=== PATIENT | female | born 1975 ===

== ENCOUNTER 2016-07-29 18:02 | Emergency (ER) | payer SELFPAY ==
[2016-07-29] MEDS ORDERED: BOOSTRIX IM ONE (18:40)
--- NOTE | 2016-07-29 18:42 | Emergency Department Report ---
Chief Complaint: Extremity Injury, Lower Stated Complaint: INFECTION Time Seen by Provider: 07/29/16 18:39 - HPI History of Present Illness: PT states she was in briar patch last week. pt states her wounds are infected. PT is not UTD on TD vaccine - ROS Review of Systems: - fever + redness, + swelling + wounds from briar patch - Exam Vital Signs: Vital Signs 07/29/16 18:34 Temperature 97.7 F Pulse Rate 89 Respiratory 16 Rate Blood Pressure 134/87 O2 Sat by Pulse 100 Oximetry Physical Exam: pt looks well, non toxic. multiple abrasions/ scabs to LLE MSE screening note: Focused history and physical exam performed. Due to findings the following was ordered: tdap ED Disposition for MSE Condition: Stable
--- NOTE | 2016-07-29 21:42 | Emergency Department Report ---
- General Chief complaint: Extremity Injury, Lower Stated complaint: INFECTION Time Seen by Provider: 07/29/16 18:39 Source: patient, family Mode of arrival: Ambulatory Limitations: No Limitations - History of Present Illness Initial comments: She reported that she was in a few days ago about 3 days ago and she cut her left lower leg at the back on the branch. She states it looks like her leg is infected and swollen and reddened. She denies any fever or chills. Denies any nausea or vomiting. Denies any numbness or tingling to extremities. Tetanus shot is not up-to-date. He reports that it is aggravating her .and she was scratching it. Reports pain is 3 out of 10 and that she took [id number] pain medication complaint: rash Onset/Timin -: days(s) Tetanus Up to Date: no Location: LLE Severity: mild Severity scale (0 -10): 3 Quality: other (sore) Consistency: constant Improves with: none Context: other (injury to lt leg) Associated symptoms: athralgias Treatments Prior to Arrival: other ([id number]. Medication) - Related Data Previous Rx's Medication Instructions Recorded Last Taken Type Ibuprofen [Motrin] 600 mg PO Q8H PRN #15 tablet 07/29/16 Unknown Rx Sulfamethoxazole/Trimethoprim 1 each PO BID #20 tablet 07/29/16 Unknown Rx [Bactrim DS TAB] Allergies Allergy/AdvReac Type Severity Reaction Status Date / Time No Known Allergies Allergy Verified 07/29/16 18:40 Abscess Boil HPI - HPI Chief Complaint: Extremity Injury, Lower Stated Complaint: INFECTION Time Seen by Provider: 07/29/16 18:39 Home Medications: Previous Rx's Medication Instructions Recorded Last Taken Type Ibuprofen [Motrin] 600 mg PO Q8H PRN #15 tablet 07/29/16 Unknown Rx Sulfamethoxazole/Trimethoprim 1 each PO BID #20 tablet 07/29/16 Unknown Rx [Bactrim DS TAB] Allergies/Adverse Reactions: Allergies Allergy/AdvReac Type Severity Reaction Status Date / Time No Known Allergies Allergy Verified 07/29/16 18:40 ED Review of Systems ROS: Stated complaint: INFECTION Other details as noted in HPI Comment: All other systems reviewed and negative Constitutional: denies: chills, fever, malaise Respiratory: no symptoms reported Cardiovascular: denies: chest pain, palpitations, edema, syncope Gastrointestinal: denies: abdominal pain, nausea, vomiting, diarrhea Skin: rash, change in color Neurological: denies: headache, numbness, paresthesias, abnormal gait, vertigo ED Past Medical Hx - Past Medical History Previous Medical History?: No - Surgical History Past Surgical History?: No - Family History Family history: no significant - Social History Smoking Status: Current Every Day Smoker Substance Use Type: None - Medications Home Medications: Home Medications Medication Instructions Recorded Confirmed Last Taken Type Ibuprofen [Motrin] 600 mg PO Q8H PRN #15 tablet 07/29/16 Unknown Rx Sulfamethoxazole/Trimethoprim 1 each PO BID #20 tablet 07/29/16 Unknown Rx [Bactrim DS TAB] ED Physical Exam - General Limitations: No Limitations General appearance: alert, in no apparent distress - Head Head exam: Present: atraumatic, normocephalic, normal inspection - Eye Eye exam: Present: normal appearance, PERRL, EOMI Pupils: Present: normal accommodation - ENT ENT exam: Present: normal exam, normal orophraynx, mucous membranes moist, TM's normal bilaterally, normal external ear exam - Neck Neck exam: Present: normal inspection, full ROM. Absent: tenderness, meningismus, lymphadenopathy - Respiratory Respiratory exam: Present: normal lung sounds bilaterally. Absent: respiratory distress, wheezes, rales, rhonchi, stridor, chest wall tenderness - Cardiovascular Cardiovascular Exam: Present: regular rate, normal rhythm, normal heart sounds - Extremities Exam Extremities exam: Present: normal inspection, full ROM, tenderness (mild tenderness around distal posterior leg, left), normal capillary refill, other ( patient with 2+ pedal pulses. Capillary refill is less than 3 seconds. No calf swelling or erythema.). Absent: pedal edema, joint swelling, calf tenderness - Back Exam Back exam: Present: normal inspection, full ROM. Absent: tenderness, CVA tenderness (R), CVA tenderness (L), muscle spasm, paraspinal tenderness, vertebral tenderness, rash noted - Neurological Exam Neurological exam: Present: alert, oriented X3, normal gait, reflexes normal. Absent: motor sensory deficit - Psychiatric Psychiatric exam: Present: normal affect, normal mood - Skin Skin exam: Present: warm, dry, erythema, abrasion - Expanded Skin Exam Expanded Type of lesion: Present: abrasion Distribution of rash: LLE (distal Leg posteriorly) Description of rash: Present: tenderness, erythematous (abrasion with cellulitis around abrasion), swelling (around abrasions). Absent: crusting, discharge, fluctuant, indurated ED Course Vital Signs 07/29/16 18:34 Temperature 97.7 F Pulse Rate 89 Respiratory 16 Rate Blood Pressure 134/87 O2 Sat by Pulse 100 Oximetry - Reevaluation(s) Reevaluation #1: 07/29/16 22:52 Given Motrin 800 mg when necessary emergency room for pain, Rocephin 1 g IM for cellulitis to Left distal leg and her tetanus shot was updated. ED Medical Decision Making - Medical Decision Making ED Course: Patient status post injury to left lower leg with localized cellulitis and arthralgias. Given Motrin 800 mg by mouth in the ED, discharged 0.5 mL injection and Rocephin 1 g IM for cellulitis. Patient remained stable. No adverse reaction from medication. I discussed diagnosis and treatment plan the patient and she voiced understanding. Patient discharged home with prescription for Bactrim DS and Motrin and to follow up with primary care in 2- 3 days. Instructed if she does not have a primary care she can follow-up with [facility]. Patient discharged home in stable condition. Critical care attestation.: If time is entered above; I have spent that time in minutes in the direct care of this critically ill patient, excluding procedure time. ED Disposition Clinical Impression: Cellulitis of left leg without foot, Arthralgia of left lower leg Abrasion, left lower leg, initial encounter Qualifiers: Encounter type: initial encounter Qualified Code(s): S80.812A - Abrasion, left lower leg, initial encounter Disposition: TO HOME OR SELFCARE Is pt being admited?: No Does the pt Need Aspirin: No Condition: Stable Instructions: Arthralgia (ED), Cellulitis (ED), Abrasion (ED) Additional Instructions: Take antibiotic as prescribed Keep Affected area clean and dry Follow-up with [facility] if you do not have a primary care doctor in 2-3 days Prescriptions: Ibuprofen [Motrin] 600 mg PO Q8H PRN #15 tablet PRN Reason: Pain Sulfamethoxazole/Trimethoprim [Bactrim DS TAB] 1 each PO BID #20 tablet Referrals: PRIMARY CARE, [Primary Care Provider] - 2-3 Days [facility] [Outside] - 2-3 Days Forms: Work/School Release Form(ED)
[2016-07-29] MEDS ORDERED: ROCEPHIN IM ONE (21:43)
[2016-07-29] MEDS ORDERED: XYLOCAINE 1% MPF 5 mL INFILTRATI ONE (21:43)
[2016-07-29] MEDS ORDERED: MOTRIN PO ONE (21:43)
[2016-07-29 23:06] VITALS: BP 119/72
== END 2016-07-29 23:06 | disposition home or self-care (01) ==
LOC: ED 18:02
DX: S80.812A Abrasion, left lower leg, initial encounter (principal); L03.116 Cellulitis of left lower limb; M79.662 Pain in left lower leg; F17.200 Nicotine dependence, unspecified, uncomplicated; X58.XXXA Exposure to other specified factors, initial encounter; Y93.89 Activity, other specified; Y99.9 Unspecified external cause status; Y92.89 Other specified places as the place of occurrence of the external cause
CPT/HCPCS: 90471; 90715; 96372; 99282; J0696